=== PATIENT | female | born 1935 | race American Indian/Alaskan Native ===

== ENCOUNTER 2016-12-23 15:55 | Emergency (ER) | payer BC, MEDICARE ==
[2016-12-23 15:56] VITALS: BMI 35.1
[2016-12-23 16:37] VITALS: RESP 18
[2016-12-23] MEDS ORDERED: Apap-Butalbital-Caffeine 325-50-40mg Tab PO STA (18:12)
[2016-12-23] MEDS ORDERED: Apap-Butalbital-Caffeine 325-50-40mg Tab ONE (18:16)
--- NOTE | 2016-12-23 19:47 | CT ---
EXAM: CT Head Without Intravenous Contrast. CLINICAL HISTORY: 81 years old, female; Condition or disease; Headache TECHNIQUE: Axial computed tomography images of the head/brain without intravenous contrast. This CT exam was performed using one or more of the following dose reduction techniques: automated exposure control, adjustment of the mA and/or kV according to patient size, and/or use of iterative reconstruction technique. EXAM DATE/TIME: 12/23/2016 6:11 PM COMPARISON: Prior head CT of 01/29/2016 FINDINGS: BRAIN: Diffuse, age-related cortical atrophy and ventriculomegaly. No significant acute abnormality identified. No acute hemorrhage seen within the brain. No acute extra-axial fluid collections visualized. No evidence of significant mass effect within the brain. VENTRICLES: See above. BONES/JOINTS: No acute fractures or other acute bony abnormality noted. SOFT TISSUES: No acute abnormality of the visualized soft tissues is seen. VASCULATURE: Atherosclerotic calcification. SINUSES: Visualized paranasal sinuses appear clear. MASTOID AIR CELLS: Mastoid air cells appear clear. IMPRESSION: - No acute findings seen within the brain. - See above for remaining findings.
[2016-12-23 20:11] VITALS: BP 152/87; PULSE 77; TEMP 98; O2SAT 95
--- NOTE | 2016-12-23 20:14 | C.PDOC ---
Time Seen by Provider: 12/23/16 18:00 Chief Complaint (Nursing): Headache History Per: Patient Onset/Duration Of Symptoms: Days (3), Waxing/Waning, Gradual Current Symptoms Are (Timing): Still Present Severity: Moderate Quality: Other (Throbbing) Associated Symptoms: denies: Photophobia, Blurred Vision, Extremity Weakness Additional History Per: Prior Records Past Medical History Reviewed: Historical Data, Nursing Documentation, Vital Signs Vital Signs: Last Vital Signs Temp 98.0 F 12/23/16 20:10 Pulse 77 12/23/16 20:10 Resp 18 12/23/16 20:10 BP 152/87 H 12/23/16 20:10 Pulse Ox 95 12/23/16 20:10 - Medical History PMH: Anemia, Arthritis, Asthma, Back Problems, COPD, Diabetes (NIDDM), HTN, Hypercholesterolemia, Osteoporosis, TIA - [facility] Procedures CLOSED ENDOSCOPIC BIOPSY OF LARGE INTESTINE (12/14/13) ESOPHAGOGASTRODUODENOSCOPY [EGD] W/CLOSED BIOPSY (12/14/13) Family History: States: Unknown Family Hx - Social History Hx Tobacco Use: No Hx Alcohol Use: No Hx Substance Use: No - Immunization History Hx Tetanus Toxoid Vaccination: No Hx Influenza Vaccination: Yes Hx Pneumococcal Vaccination: No Review Of Systems Except As Marked, All Systems Reviewed And Found Negative. Constitutional: Negative for: Fever, Weakness Cardiovascular: Negative for: Chest Pain Respiratory: Negative for: Shortness of Breath Gastrointestinal: Negative for: Nausea, Vomiting, Abdominal Pain Skin: Negative for: Rash Neurological: Positive for: Headache. Negative for: Weakness, Numbness, Incoordination, Change in Speech, Confusion, Seizures, Altered Mental Status, Dizziness Physical Exam - Physical Exam Appears: Non-toxic, No Acute Distress Skin: Normal Color, Warm, Dry, No Rash Head: Atraumatic Eye(s): bilateral: EOMI, right: Abnormal Pupil (post surgical), left: PERRL Neck: Normal ROM, Supple Cardiovascular: Rhythm Regular Respiratory: Normal Breath Sounds, No Accessory Muscle Use Gastrointestinal/Abdominal: Soft, No Tenderness Back: No CVA Tenderness Extremity: Normal ROM Neurological/Psych: Oriented x3, Normal Speech, Normal Cognition, No Cerebellar Signs, Normal Motor, Normal Sensation ED Course And Treatment O2 Sat by Pulse Oximetry: 95 Pulse Ox Interpretation: Normal - CT Scan/US CT head Other Rad Studies (CT/US): Read By Radiologist, Radiology Report Reviewed CT/US Interpretation: IMPRESSION: - No acute findings seen within the brain. - See above for remaining findings. Progress Note: Headache resolved after Fioricet. Reassessment Condition: Improved Disposition Counseled Patient/Family Regarding: Studies Performed, Diagnosis, Need For Followup, Rx Given - Disposition Referrals: Diomedes Diaz MD [Staff Provider] - Disposition: HOME/ ROUTINE Disposition Time: 20:16 Condition: IMPROVED Additional Instructions: Follow up with your doctor for further evaluation and treatment. Return to the ER if you develop fever, vomiting, weakness, numbness, severe headache, confusion, worsening of symptoms or if you have any other concerns. Prescriptions: Acetaminophen/Butalbital/Caf [Fioricet] 1 tab PO TID PRN #20 tab PRN Reason: Headache Instructions: General Headache (ED) Print Language: ISRAELI - Clinical Impression Clinical Impression: Headache
== END 2016-12-23 20:23 | disposition home or self-care (01) ==
LOC: C.ER 15:55
DX: R51 Headache (principal)

== ENCOUNTER 2017-02-20 12:35 | Emergency (ER) | payer MEDICARE, OTHER ==
[2017-02-20 12:36] VITALS: BMI 35.1
[2017-02-20 14:24] VITALS: BP 124/75; PULSE 82; RESP 18; TEMP 98.5; O2SAT 99
--- NOTE | 2017-02-20 15:53 | C.PDOC ---
History Of Present Illness entire chart and discharge done on paper during [facility] downtime. Past Medical History Vital Signs: Last Vital Signs Temp 98.5 F 02/20/17 14:23 Pulse 82 02/20/17 14:23 Resp 18 02/20/17 14:23 BP 124/75 02/20/17 14:23 Pulse Ox 99 02/20/17 15:53 - Medical History PMH: Anemia, Arthritis, Asthma, Back Problems, COPD, Diabetes (NIDDM), HTN, Hypercholesterolemia, Osteoporosis, TIA Denies: Chronic Kidney Disease - [facility] Procedures CLOSED ENDOSCOPIC BIOPSY OF LARGE INTESTINE (12/14/13) ESOPHAGOGASTRODUODENOSCOPY [EGD] W/CLOSED BIOPSY (12/14/13) Family History: States: Unknown Family Hx - Social History Hx Tobacco Use: No Hx Alcohol Use: No Hx Substance Use: No - Immunization History Hx Tetanus Toxoid Vaccination: No Hx Influenza Vaccination: Yes Hx Pneumococcal Vaccination: No ED Course And Treatment O2 Sat by Pulse Oximetry: 99 Disposition - Disposition Disposition: HOME/ ROUTINE Disposition Time: 13:30 Condition: GOOD - Clinical Impression Clinical Impression: Upper respiratory infection
== END 2017-02-20 14:24 | disposition home or self-care (01) ==
LOC: C.ER 12:35
DX: J06.9 Acute upper respiratory infection, unspecified (principal); R22.0 Localized swelling, mass and lump, head; L29.9 Pruritus, unspecified

== ENCOUNTER 2017-04-29 20:41 | Emergency (ER) | payer MEDICARE, BC, OTHER ==
[2017-04-29 20:41] VITALS: BMI 35.1
[2017-04-29 20:58] VITALS: O2SAT 100
[2017-04-29] MEDS ORDERED: Sodium Chloride 0.9% 1,000 ML IV ONE (21:54)
[2017-04-29] MEDS ORDERED: Sodium Chloride 0.9% 1,000 ML ONE (22:04)
[2017-04-29 22:26] LABS: BASO % 0.6 % (0.0-2.0); EOS # 0.1 K/uL (0.0-0.7); EOS % 1.5 % (0.0-4.0); HEMATOCRIT 33.7 % (34.0-47.0); LYMPH % 14.1 % (20.0-40.0); MEAN CELL VOLUME 76.7 fL (81.0-99.0); MEAN CORPUSCULAR HEMOGLOBIN 24.2 pg (27.0-31.0); MEAN CORPUSCULAR HGB CONC 31.6 g/dL (33.0-37.0); MEAN PLATELET VOLUME 8.4 fL (7.2-11.7); MONO # 0.6 K/uL (0.0-0.8); MONO % 8.1 % (0.0-10.0); RED CELL DISTRIBUTION WIDTH 14.6 % (11.5-14.5)
--- NOTE | 2017-04-29 22:32 | C.PDOC ---
History Of Present Illness 82 year old female who presents to the ER with a complaint of dizziness for the past 4-5 days, associated with nausea and vomiting. Patient reports it feels like the room is spinning, denies headache, fever, or chills. Chief Complaint (Nursing): Dizziness/Lightheaded History Per: Patient History/Exam Limitations: no limitations Onset/Duration Of Symptoms: Days Current Symptoms Are (Timing): Still Present Activity At Onset Of Symptoms: Other (Not known) Seizure Or Post-ictal Symptoms: None Possible Causative Factor(s): Other (Not known) Fall Associated With With Symptoms: No Recent travel outside of the [place]: No - Symptoms Of CVA Associated Symptoms: denies: Impaired Speech, Seizure Activity, New Vision Deficit(Left), New Vision Deficit(Right), Decreased Ability To Walk, New Confusion, Other Past Medical History Reviewed: Historical Data, Nursing Documentation, Vital Signs Vital Signs: Last Vital Signs Temp 98.8 F 04/29/17 20:56 Pulse 74 04/29/17 23:24 Resp 12 04/29/17 23:24 BP 125/58 L 04/29/17 23:24 Pulse Ox 100 04/30/17 00:29 - Medical History PMH: Anemia, Arthritis, Asthma, Back Problems, COPD, Diabetes (NIDDM), HTN, Hypercholesterolemia, Osteoporosis, TIA - [facility] Procedures CLOSED ENDOSCOPIC BIOPSY OF LARGE INTESTINE (12/14/13) ESOPHAGOGASTRODUODENOSCOPY [EGD] W/CLOSED BIOPSY (12/14/13) Family History: States: Unknown Family Hx - Social History Hx Tobacco Use: No Hx Alcohol Use: No Hx Substance Use: No - Immunization History Hx Tetanus Toxoid Vaccination: No Hx Influenza Vaccination: Yes Hx Pneumococcal Vaccination: No Review Of Systems Gastrointestinal: Positive for: Nausea, Vomiting Neurological: Positive for: Dizziness. Negative for: Weakness, Numbness, Headache Physical Exam - Physical Exam Appears: Non-toxic, No Acute Distress Skin: Normal Color, Warm, Dry Head: Atraumatic, Normacephalic Eye(s): bilateral: Other (Nystagmus laterally) Oral Mucosa: Moist Neck: Normal, Supple Chest: Symmetrical, No Tenderness Cardiovascular: Rhythm Regular, No Murmur Respiratory: Normal Breath Sounds, No Rales, No Rhonchi, No Wheezing Gastrointestinal/Abdominal: Soft, No Tenderness Neurological/Psych: Oriented x3, Normal Speech, Normal Cognition ED Course And Treatment - Laboratory Results Result Diagrams: 04/29/17 22:22 04/29/17 22:22 ECG: Interpreted By Me, Viewed By Me ECG Rhythm: Sinus Rhythm ECG Interpretation: No Acute Changes, Abnormal Interpretation Of ECG: NSR, QS pattern inferior leads, abnormal tracings. Rate From EC O2 Sat by Pulse Oximetry: 100 (Room air) Pulse Ox Interpretation: Normal - CT Scan/US CT Head Other Rad Studies (CT/US): Read By Radiologist, Radiology Report Reviewed CT/US Interpretation: EXAM: CT Head Without Intravenous Contrast. CLINICAL HISTORY: 82 years old, female; Pain and signs and symptoms; Dizziness; Headache ; Headache not specified. TECHNIQUE: Axial computed tomography images of the head/brain without intravenous contrast. This CT exam. was performed using one or more of the following dose reduction techniques: automated exposure. control , adjustment of the mA and/or kV according to patient size, and/or use of iterative. reconstruction technique. COMPARISON: CT - HEAD W/O CONTRAST 2015 11:58:44 AM. FINDINGS: Brain: Mild atrophy. No intracranial hemorrhage. No mass. No definite edema. Ventricles: No hydrocephalus. Bones/joints: No acute fracture. Soft tissues: Unremarkable. Vasculature: Mild atherosclerotic disease of intracranial arteries. Sinuses: Tiny RIGHT maxillary retention cyst. Mastoid air cells: No mastoid effusion. Orbits: Unremarkable as visualized. IMPRESSION: 1. No definite acute intracranial abnormality. 2. Incidental/non-acute findings are described above. Progress Note: CT head and EKG ordered. Antivert, zofran, and IV fluids administered. Disposition Counseled Patient/Family Regarding: Diagnosis - Disposition Referrals: [facility] [Outside] Disposition: HOME/ ROUTINE Disposition Time: 00:28 Condition: STABLE Prescriptions: Meclizine [Meclizine*] 25 mg PO Q6 #30 tab Instructions: Vertigo (ED) Forms: [facility] (Korean) - POA Present On Arrival: None - Clinical Impression Clinical Impression: Vertigo - Scribe Statement The provider has reviewed the documentation as recorded by the Scribe Kenneth Stovall All medical record entries made by the Scribe were at my direction and personally dictated by me. I have reviewed the chart and agree that the record accurately reflects my personal performance of the history, physical exam, medical decision making, and the department course for this patient. I have also personally directed, reviewed, and agree with the discharge instructions and disposition.
[2017-04-29 22:34] LABS: CHLORIDE 94 mmol/L (98-107); POTASSIUM 5.2 mmol/L (3.6-5.2); SODIUM 136 mmol/L (132-148)
[2017-04-29 22:36] LABS: GFR AFRICAN-AMERICAN > 60
[2017-04-29 22:37] LABS: ALB/GLOB RATIO 1.3 (1.0-2.1); ALKALINE PHOSPHATASE 36 U/L (38-126); ALT/SGPT 26 U/L (9-52); AST/SGOT 48 U/L (14-36); BILIRUBIN,TOTAL 0.9 mg/dL (0.2-1.3); BLOOD UREA NITROGEN 16 mg/dL (7-17); CARBON DIOXIDE 27 mmol/L (22-30); GLUCOSE,RANDOM 108 mg/dL (65-105); TOTAL PROTEIN 7.7 g/dL (6.3-8.3)
[2017-04-29 22:38] LABS: CALCIUM 9.5 mg/dl (8.6-10.4)
--- NOTE | 2017-04-29 23:01 | CT ---
EXAM: CT Head Without Intravenous Contrast CLINICAL HISTORY: 82 years old, female; Pain and signs and symptoms; Dizziness; Headache; Headache not specified TECHNIQUE: Axial computed tomography images of the head/brain without intravenous contrast. This CT exam was performed using one or more of the following dose reduction techniques: automated exposure control, adjustment of the mA and/or kV according to patient size, and/or use of iterative reconstruction technique. COMPARISON: CT - HEAD W/O CONTRAST 01/29/2016 11:58:44 AM FINDINGS: Brain: Mild atrophy. No intracranial hemorrhage. No mass. No definite edema. Ventricles: No hydrocephalus. Bones/joints: No acute fracture. Soft tissues: Unremarkable. Vasculature: Mild atherosclerotic disease of intracranial arteries. Sinuses: Tiny RIGHT maxillary retention cyst. Mastoid air cells: No mastoid effusion. Orbits: Unremarkable as visualized. IMPRESSION: 1. No definite acute intracranial abnormality. 2. Incidental/non-acute findings are described above.
[2017-04-29 23:26] VITALS: PULSE 74; RESP 12
[2017-04-30 00:40] VITALS: BP 129/58; TEMP 97.9
--- NOTE | 2017-04-30 12:23 | CARD ---
APPROVED REPORT EKG Measurement Heart [id number] <Conclusion> Normal sinus rhythm with sinus arrhythmia Moderate voltage criteria for LVH, may be normal variant Inferior infarct, age undetermined Abnormal ECG
== END 2017-04-30 00:43 | disposition home or self-care (01) ==
LOC: C.ER 20:41
DX: R42 Dizziness and giddiness (principal); I10 Essential (primary) hypertension; E78.00 Pure hypercholesterolemia, unspecified; Z86.73 Personal history of transient ischemic attack (TIA), and cerebral infarction without residual deficits
CPT/HCPCS: 70450; 80053; 85025; 93005; 96374; 99285; J2405; J7040

== ENCOUNTER 2017-07-25 08:50 | Emergency (ER) | payer MEDICARE, BC, OTHER ==
[2017-07-25 08:50] VITALS: BMI 35.1
[2017-07-25 09:02] VITALS: RESP 18; TEMP 98
[2017-07-25] MEDS ORDERED: Albuterol-Ipratrop 3 mg / 0.5 (3 ml) UD INH STA (09:10)
[2017-07-25] MEDS ORDERED: Albuterol-Ipratrop 3 mg / 0.5 (3 ml) UD ONE (09:11)
--- NOTE | 2017-07-25 09:36 | C.PDOC ---
History Of Present Illness 82 y/o female presents to ED with c/o nasal congestion and cough for 3 days. Patient reports cough productive of white sputum. Denies fever, chills, chest pain, SOB, nausea, vomiting, diarrhea, or other associated symptoms. Time Seen by Provider: 07/25/17 09:09 Chief Complaint (Nursing): Cough, Cold, Congestion History Per: Patient History/Exam Limitations: no limitations Onset/Duration Of Symptoms: Days Current Symptoms Are (Timing): Still Present Sick Contacts (Context): None Associated Symptoms: Cough, Sputum, Nasal Congestion. denies: Fever, Neck Pain , Vomiting, Diarrhea Ear Symptoms: Bilateral: None Recent travel outside of the [place]: No Past Medical History Reviewed: Historical Data, Nursing Documentation, Vital Signs Vital Signs: Last Vital Signs Temp 98.0 F 07/25/17 09:01 Pulse 73 07/25/17 09:48 Resp 18 07/25/17 09:48 BP 115/66 07/25/17 09:48 Pulse Ox 100 07/25/17 09:48 - Medical History PMH: Anemia, Arthritis, Asthma, Back Problems, COPD, Diabetes (NIDDM), HTN, Hypercholesterolemia, Osteoporosis, TIA - [facility] Procedures CLOSED ENDOSCOPIC BIOPSY OF LARGE INTESTINE (12/14/13) ESOPHAGOGASTRODUODENOSCOPY [EGD] W/CLOSED BIOPSY (12/14/13) Family History: States: Unknown Family Hx - Social History Hx Tobacco Use: No Hx Alcohol Use: No Hx Substance Use: No - Immunization History Hx Tetanus Toxoid Vaccination: No Hx Influenza Vaccination: Yes Hx Pneumococcal Vaccination: No Review Of Systems Except As Marked, All Systems Reviewed And Found Negative. Constitutional: Negative for: Fever, Chills Cardiovascular: Negative for: Chest Pain, Palpitations Respiratory: Positive for: Cough, Sputum. Negative for: Shortness of Breath Gastrointestinal: Negative for: Nausea, Vomiting, Abdominal Pain Skin: Negative for: Rash Neurological: Negative for: Headache, Dizziness Physical Exam - Physical Exam Appears: Non-toxic, No Acute Distress Skin: Normal Color, Warm, Dry Head: Atraumatic, Normacephalic Eye(s): bilateral: Normal Inspection, PERRL, EOMI Ear(s): Bilateral: Normal Nose: Normal Oral Mucosa: Moist Throat: Normal, No Erythema, No Exudate Neck: Normal ROM, Supple Chest: Symmetrical Cardiovascular: Rhythm Regular Respiratory: Normal Breath Sounds, No Rales, No Rhonchi, No Wheezing Gastrointestinal/Abdominal: Normal Exam, Soft, No Tenderness Back: Normal Inspection Extremity: Normal ROM, Capillary Refill (< 2 sec.) Neurological/Psych: Oriented x3, Normal Speech, Normal Cognition ED Course And Treatment O2 Sat by Pulse Oximetry: 96 (RA) Pulse Ox Interpretation: Normal - Radiology CXR: Viewed By Me, Read By Radiologist CXR Interpretation: Yes: Other (Suspect mild bibasilar atelectasis.) Medical Decision Making Medical Decision Making: Plan: CxR ordered. Nebulizer treatment given. Progress: On re-eval, lungs remain CTA, pt in no acute distress. Advised follow up with PMD and to take prescribed medications as directed. Disposition Counseled Patient/Family Regarding: Diagnosis, Need For Followup, Rx Given - Disposition Referrals: Oscar Sarmiento MD [Medical Doctor] - Disposition: HOME/ ROUTINE Disposition Time: 09:30 Condition: STABLE Additional Instructions: Your prescriptions were sent to [facility] Take couch medicine as needed Take Zithromax as prescribed Please follow up with your primary doctor for further evaluation Prescriptions: Azithromycin [Z-Nate] 250 mg PO DAILY #6 tab guaiFENesin/Dextromethorphan [Robitussin DM] 10 ml PO Q8 PRN #300 ml PRN Reason: Cough Instructions: Upper Respiratory Infection (ED) Forms: [facility] (Divehi) - POA Present On Arrival: None - Clinical Impression Clinical Impression: Upper respiratory infection - PA / GALLEY COOK / Resident Statement MD/DO has reviewed & agrees with the documentation as recorded. - Scribe Statement The provider has reviewed the documentation as recorded by the Scribe SM All medical record entries made by the Scribe were at my direction and personally dictated by me. I have reviewed the chart and agree that the record accurately reflects my personal performance of the history, physical exam, medical decision making, and the department course for this patient. I have also personally directed, reviewed, and agree with the discharge instructions and disposition.
--- NOTE | 2017-07-25 09:42 | RAD ---
HISTORY: cough COMPARISON: Comparison made with prior chest radiograph 11/08/2016 TECHNIQUE: Chest PA and lateral FINDINGS: LUNGS: Suspect mild bibasilar atelectasis PLEURA: No significant pleural effusion identified. No pneumothorax apparent. CARDIOVASCULAR: . Heart size is borderline/ mildly enlarged. OSSEOUS STRUCTURES: Mild multilevel degenerative spondylosis of the thoracic spine. Degenerative changes both shoulder girdles. VISUALIZED UPPER ABDOMEN: Normal. OTHER FINDINGS: None. IMPRESSION: Suspect mild bibasilar atelectasis.
[2017-07-25 09:49] VITALS: BP 115/66; PULSE 73
[2017-07-25 10:05] VITALS: O2SAT 96
== END 2017-07-25 09:49 | disposition home or self-care (01) ==
LOC: C.ER 08:50
DX: J06.9 Acute upper respiratory infection, unspecified (principal)

== ENCOUNTER 2017-08-19 12:26 | Emergency (ER) | payer MEDICARE, BC, OTHER ==
[2017-08-19 12:30] VITALS: BMI 35.1
[2017-08-19 12:38] VITALS: BP 130/79; PULSE 86; RESP 18; TEMP 97.5; O2SAT 99
--- NOTE | 2017-08-19 12:56 | C.PDOC ---
History Of Present Illness 82 yr old female presents to the ER for evaluation of white patches in her mouth for the past 1 month. Patient states she was seen by her doctor 1 month ago and was given prescription for a dissolving tablet but has had no relief with them. Patient reports she also has a appointment with her dentist in September. Patient denies any pain but states it feels like her mouth is dry. Patient denies fever, chills, sore throat, difficulty swallowing or neck pain. Time Seen by Provider: 08/19/17 12:46 Chief Complaint (Nursing): Medical Clearance History Per: Patient History/Exam Limitations: no limitations Onset/Duration Of Symptoms: Days (1 month) Current Symptoms Are (Timing): Still Present Past Medical History Reviewed: Historical Data, Nursing Documentation, Vital Signs Vital Signs: Last Vital Signs Temp 97.5 F L 08/19/17 12:36 Pulse 86 08/19/17 12:36 Resp 18 08/19/17 12:36 BP 130/79 08/19/17 12:36 Pulse Ox 99 08/19/17 13:01 - Medical History PMH: Anemia, Arthritis, Asthma, Back Problems, COPD, Diabetes (NIDDM), HTN, Hypercholesterolemia, Osteoporosis, TIA - [facility] Procedures CLOSED ENDOSCOPIC BIOPSY OF LARGE INTESTINE (12/14/13) ESOPHAGOGASTRODUODENOSCOPY [EGD] W/CLOSED BIOPSY (12/14/13) Family History: States: No Known Family Hx - Social History Hx Tobacco Use: No Hx Alcohol Use: No Hx Substance Use: No - Immunization History Hx Tetanus Toxoid Vaccination: No Hx Influenza Vaccination: Yes Hx Pneumococcal Vaccination: No Review Of Systems Except As Marked, All Systems Reviewed And Found Negative. Constitutional: Negative for: Fever, Chills ENT: Negative for: Throat Pain Musculoskeletal: Negative for: Neck Pain Physical Exam - Physical Exam Appears: Non-toxic, No Acute Distress Skin: Warm, Dry, No Rash Head: Atraumatic, Normacephalic Oral Mucosa: Moist Throat: Normal, No Erythema, No Exudate, No Drooling Neck: Normal, Normal ROM, Supple Cardiovascular: Rhythm Regular, No Murmur Respiratory: Normal Breath Sounds, No Rales, No Rhonchi, No Stridor, No Wheezing Extremity: Normal ROM, No Swelling Neurological/Psych: Oriented x3, Normal Speech, Normal Motor ED Course And Treatment O2 Sat by Pulse Oximetry: 99 (RA) Pulse Ox Interpretation: Normal Progress Note: Patient advised to follow up with her PMD in 2-3 days and dentist. Disposition Counseled Patient/Family Regarding: Diagnosis, Need For Followup, Rx Given - Disposition Disposition Time: 12:56 Condition: STABLE Additional Instructions: Follow up with your pmd in 2 days without fail. Take medication as prescribed. Return to the ER at any time for any new or worsening symptoms. Prescriptions: Nystatin [Nystatin Oral Susp] 100,000 unit PO QID #150 ml Instructions: Oral Candidiasis (ED) Forms: [employer] (Niuean) Print Language: TELUGU - Clinical Impression Clinical Impression: Thrush, oral - PA / RING P[employer]ER / Resident Statement MD/DO has reviewed & agrees with the documentation as recorded. - Scribe Statement The provider has reviewed the documentation as recorded by the Scribe Renetta Colon All medical record entries made by the Scribe were at my direction and personally dictated by me. I have reviewed the chart and agree that the record accurately reflects my personal performance of the history, physical exam, medical decision making, and the department course for this patient. I have also personally directed, reviewed, and agree with the discharge instructions and disposition.
== END 2017-08-19 13:20 | disposition home or self-care (01) ==
LOC: C.ER 12:26
DX: B37.0 Candidal stomatitis (principal)

== ENCOUNTER 2017-09-10 12:42 | Emergency (ER) | payer MEDICARE, BC, OTHER ==
[2017-09-10 12:43] VITALS: BMI 35.1
--- NOTE | 2017-09-10 13:56 | RAD ---
PROCEDURE: Right Hip Radiographs. HISTORY: Pain COMPARISON: None. FINDINGS: BONES: The pelvic ring is intact. There is no acute displaced fracture or bone destruction. JOINTS: The joint spaces are preserved. SOFT TISSUES: Normal. OTHER FINDINGS: There are multiple soft tissue calcifications in the right periarticular region. Atherosclerotic vascular calcifications are present. IMPRESSION: No acute displaced fracture or dislocation.
[2017-09-10 14:40] VITALS: RESP 18
--- NOTE | 2017-09-10 14:53 | RAD ---
PROCEDURE: Lumbar spine 09/10/2017. Three views of the lumbar spine performed and compared with prior study dated 08/17/2013. HISTORY: Pain FINDINGS: BONES: No acute compression fractures nor retropulsed fragments. Vertebral bodies exhibit normal stature. There is a mild levo rotoscoliosis. Slight anterior subluxation L5 over S1. Questionable spina bifida occulta involving the L4 segment DISC SPACES: Multilevel degenerative spondylosis. . Changes include varying degrees of mild posterior disc space narrowing with endplate eburnation and small anterolateral osteophyte formation. The facet joints are hypertrophic L5-S1 through the L2-L3 levels in decreasing order of severity. OTHER FINDINGS: Spondylosis. Sclerotic changes both SI joints. IMPRESSION: No acute fractures. Mild levorotoscoliosis. . Multilevel degenerative spondylosis as described.
--- NOTE | 2017-09-10 15:07 | C.PDOC ---
History Of Present Illness 82 y/o female presents to the ED complaining of right hip pain for 2 weeks. Pain worsens with movement and radiated down the right leg. Denies any trauma or fall. Patient has a history of arthritis. Has been taking Tylenol for the pain. No abdominal pain, dysuria, urinary frequency, urinary/bowel incontinence , fever or chest pain. Pt walks with a cane, notes she has been for a while now , not since the hip pain. Time Seen by Provider: 09/10/17 13:08 Chief Complaint (Nursing): Hip Pain History Per: Patient History/Exam Limitations: no limitations Onset/Duration Of Symptoms: Days (x 2 weeks) Current Symptoms Are (Timing): Still Present Past Medical History Reviewed: Historical Data, Nursing Documentation, Vital Signs Vital Signs: Last Vital Signs Temp 97.3 F L 09/10/17 15:49 Pulse 67 09/10/17 15:49 Resp 18 09/10/17 15:49 BP 125/73 09/10/17 15:49 Pulse Ox 100 09/10/17 15:49 - Medical History PMH: Anemia, Arthritis, Asthma, Back Problems, COPD, Diabetes (NIDDM), HTN, Hypercholesterolemia, Osteoporosis, TIA Denies: Chronic Kidney Disease - [facility] Procedures CLOSED ENDOSCOPIC BIOPSY OF LARGE INTESTINE (12/14/13) ESOPHAGOGASTRODUODENOSCOPY [EGD] W/CLOSED BIOPSY (12/14/13) Family History: States: Unknown Family Hx - Social History Hx Tobacco Use: No Hx Alcohol Use: No Hx Substance Use: No - Immunization History Hx Tetanus Toxoid Vaccination: No Hx Influenza Vaccination: Yes Hx Pneumococcal Vaccination: No Review Of Systems Gastrointestinal: Negative for: Abdominal Pain Genitourinary: Negative for: Dysuria, Frequency, Incontinence Musculoskeletal: Positive for: Other (Right hip pain) Physical Exam - Physical Exam Appears: Non-toxic, No Acute Distress Skin: Normal Color, Warm, Dry Head: Atraumatic, Normacephalic Eye(s): bilateral: Normal Inspection, EOMI Nose: Normal Oral Mucosa: Moist Neck: Normal ROM, Supple Chest: Symmetrical Respiratory: No Accessory Muscle Use Back: No CVA Tenderness, No Vertebral Tenderness, Paraspinal Tenderness ((+) TTP the right buttock/lateral hip) Extremity: Normal ROM, Tenderness (diffusely, no swelling noted), No Calf Tenderness, No Deformity, No Swelling Pulses: Left Dorsalis Pedis: Normal, Right Dorsalis Pedis: Normal Neurological/Psych: Oriented x3, Normal Speech Gait: With Assistance (ambulates with a cane, at baseline) ED Course And Treatment O2 Sat by Pulse Oximetry: 99 (RA) Pulse Ox Interpretation: Normal - Other Rad X-Ray Lumbar Spine X-Ray: Read By Radiologist Interpretation: FINDINGS: BONES: No acute compression fractures nor retropulsed fragments. Vertebral bodies exhibit normal stature. There is a mild levo rotoscoliosis. Slight anterior subluxation L5 over S1. Questionable spina bifida occulta involving the L4 segment. DISC SPACES: Multilevel degenerative spondylosis. . Changes include varying degrees of mild posterior disc space narrowing with endplate eburnation and small anterolateral osteophyte formation. The facet joints are hypertrophic L5-S1 through the L2-L3 levels in decreasing order of severity. OTHER FINDINGS: Spondylosis. Sclerotic changes both SI joints. IMPRESSION: No acute fractures. Mild levorotoscoliosis. . Multilevel degenerative spondylosis as described. X-Ray Pelvis w/ Right Hip X-Ray: Read By Radiologist Interpretation: FINDINGS: BONES: The pelvic ring is intact. There is no acute displaced fracture or bone destruction. JOINTS: The joint spaces are preserved. SOFT TISSUES: Normal. OTHER FINDINGS: There are multiple soft tissue calcifications in the right periarticular region. Atherosclerotic vascular calcifications are present. IMPRESSION: No acute displaced fracture or dislocation. - CT Scan/US Vascular study Other Rad Studies (CT/US): Interpreted By Me CT/US Interpretation: Negative for DVT Progress Note: Pt was given results of XRs and instructed follo wup with PMD in 1-2 days or return to ER if symtpoms persist or worsen. Disposition - Disposition Referrals: Trever Davidson MD [Staff Provider] - Disposition: HOME/ ROUTINE Disposition Time: 15:43 Condition: STABLE Additional Instructions: Follow up with your primary medical doctor or clinic in 2-5 days for further evaluation. Take medications as prescribed. Return to the emergency department at any time if symptoms persist or worsen. Instructions: Osteoarthritis (ED) Forms: [employer] (Cambodian) - Clinical Impression Clinical Impression: Hip pain - PA / FIELD AUDITOR / Resident Statement MD/DO has reviewed & agrees with the documentation as recorded. - Scribe Statement The provider has reviewed the documentation as recorded by the Scribe (Thea Catherine) All medical record entries made by the Scribe were at my direction and personally dictated by me. I have reviewed the chart and agree that the record accurately reflects my personal performance of the history, physical exam, medical decision making, and the department course for this patient. I have also personally directed, reviewed, and agree with the discharge instructions and disposition.
[2017-09-10 15:36] LABS: RBC URINE < 1 /hpf (0-3); URINE BILIRUBIN NEGATIVE (NEGATIVE); URINE BLOOD NEGATIVE (NEGATIVE); URINE COLOR Yellow (YELLOW); URINE GLUCOSE (UA) NORMAL (Normal); URINE KETONE NEGATIVE (NEGATIVE); URINE LEUKOCYTE ESTERASE NEG Leu/uL (Negative); URINE PROTEIN NEGATIVE (NEGATIVE); URINE UROBILINOGEN NORMAL mg/dL (0.2-1.0); WBC URINE 1 /hpf (0-5)
[2017-09-10 15:50] VITALS: BP 125/73; PULSE 67; TEMP 97.3
[2017-09-10 18:34] VITALS: O2SAT 99
--- NOTE | 2017-09-11 11:20 | VASCLAB ---
PROCEDURE: Right Lower Extremity Venous Duplex Exam. HISTORY: pain PRIORS: None. TECHNIQUE: Right common femoral, femoral, popliteal and posterior tibial, peroneal and great saphenous veins were evaluated. Flow was assessed with color Doppler, compressibility, assessment of phasic flow and augmentation response. Report prepared by HAN Sanchez, RVT FINDINGS: RIGHT: 1. Common Femoral Vein: 1.1. Compressibility - Fully compressible: Thrombus - None: Flow - Phasic: Augmentation -Normal: Reflux - None. 2. Femoral Vein: 2.1. Compressibility - Fully compressible: Thrombus - None: Flow - Phasic: Augmentation -Normal: Reflux - None. 3. Popliteal Vein: 3.1. Compressibility - Fully compressible: Thrombus - None: Flow - Phasic: Augmentation -Normal: Reflux - None. 4. Posterior Tibial Vein: 4.1. Compressibility - Fully compressible: Thrombus - None: Flow - Phasic: Augmentation -Normal: Reflux - None. 5. Peroneal Vein: 5.1. Compressibility - Fully compressible: Thrombus - None: Flow - Phasic: Augmentation -Normal: Reflux - None. 6. Great Saphenous Vein: 6.1. Compressibility - Fully compressible: Thrombus -None: Flow - Phasic: Augmentation - Normal: Reflux - None. OTHER FINDINGS: IMPRESSION: No evidence of deep or superficial vein thrombosis of the right lower extremity with excellent venous flow. Normal valve function noted of the right side. Normal venous flow noted in the left common femoral vein.
== END 2017-09-10 15:54 | disposition home or self-care (01) ==
LOC: C.ER 12:42
DX: M25.551 Pain in right hip (principal); I10 Essential (primary) hypertension; E11.9 Type 2 diabetes mellitus without complications; Z86.73 Personal history of transient ischemic attack (TIA), and cerebral infarction without residual deficits; Z87.891 Personal history of nicotine dependence

== ENCOUNTER 2017-11-26 12:18 | Emergency (ER) | payer MEDICARE, BC, OTHER ==
[2017-11-26 12:18] VITALS: BMI 35.1
[2017-11-26] MEDS ORDERED: Sodium Chloride 0.9% 500 ML IV ONE (12:51)
[2017-11-26 13:11] VITALS: RESP 16; O2SAT 100
[2017-11-26 13:57] LABS: BASO % 0.6 % (0.0-2.0); EOS # 0.1 K/uL (0.0-0.7); EOS % 1.6 % (0.0-4.0); HEMOGLOBIN 10.2 g/dL (11.0-16.0); LYMPH # 1.1 K/uL (1.0-4.3); LYMPH % 13.1 % (20.0-40.0); MEAN CELL VOLUME 77.2 fL (81.0-99.0); MEAN CORPUSCULAR HGB CONC 32.4 g/dL (33.0-37.0); MEAN PLATELET VOLUME 8.3 fL (7.2-11.7); MONO # 0.5 K/uL (0.0-0.8); MONO % 5.6 % (0.0-10.0); NEUT # 6.9 K/uL (1.8-7.0); NEUT % 79.1 % (50.0-75.0); RBC 4.06 Mil/uL (3.80-5.20); RED CELL DISTRIBUTION WIDTH 14.2 % (11.5-14.5); WHITE BLOOD COUNT 8.7 K/uL (4.8-10.8)
[2017-11-26 14:11] LABS: ALB/GLOB RATIO 1.4 (1.0-2.1); ALBUMIN 4.2 g/dL (3.5-5.0); ALT/SGPT 16 U/L (9-52); AST/SGOT 21 U/L (14-36); BLOOD UREA NITROGEN 18 mg/dL (7-17); GFR AFRICAN-AMERICAN > 60; GFR NON-AFRICAN AMERICAN > 60; LIPASE 86 U/L (23-300)
--- NOTE | 2017-11-26 15:40 | C.PDOC ---
History Of Present Illness 82-year-old female presents to the emergency department with complaints of dizziness described as room spinning around her. Patient states symptoms started after taking PO Tramadol that was recently prescribed by her doctor. She tried PO Meclizine 12.5mg with minimal relief. Patient denies nausea/ vomiting, abdominal pain, visual changes,m facial droop, slurred speech, extremity weakness, sensory changes, chest pain, SOB, palpitations. Time Seen by Provider: 11/26/17 12:21 Chief Complaint (Nursing): GI Problem History Per: Patient History/Exam Limitations: no limitations Onset/Duration Of Symptoms: Hrs Current Symptoms Are (Timing): Still Present Severity: Moderate Past Medical History Reviewed: Historical Data, Nursing Documentation, Vital Signs Vital Signs: Last Vital Signs Temp 97.4 F L 11/26/17 16:55 Pulse 74 11/26/17 16:55 Resp 16 11/26/17 16:55 BP 115/73 11/26/17 16:55 Pulse Ox 100 11/26/17 16:55 - Medical History PMH: Anemia, Arthritis, Asthma, Back Problems, COPD, Diabetes (NIDDM), HTN, Hypercholesterolemia, Osteoporosis, TIA - [facility] Procedures CLOSED ENDOSCOPIC BIOPSY OF LARGE INTESTINE (12/14/13) ESOPHAGOGASTRODUODENOSCOPY [EGD] W/CLOSED BIOPSY (12/14/13) Family History: States: No Known Family Hx - Social History Hx Tobacco Use: No Hx Alcohol Use: No Hx Substance Use: No - Immunization History Hx Tetanus Toxoid Vaccination: No Hx Influenza Vaccination: Yes Hx Pneumococcal Vaccination: No Review Of Systems Except As Marked, All Systems Reviewed And Found Negative. Constitutional: Negative for: Fever Cardiovascular: Negative for: Chest Pain Respiratory: Negative for: Shortness of Breath Gastrointestinal: Negative for: Nausea, Vomiting, Abdominal Pain Neurological: Positive for: Dizziness. Negative for: Weakness, Numbness, Headache Physical Exam - Physical Exam Appears: Non-toxic, No Acute Distress Skin: Normal Color, Warm, Dry, No Rash Head: Normacephalic Eye(s): bilateral: Normal Inspection, PERRL (No nystagmus), EOMI Nose: Normal Oral Mucosa: Moist Neck: Normal, Normal ROM Cardiovascular: Rhythm Regular, Murmur Respiratory: Normal Breath Sounds, No Rales, No Rhonchi, No Wheezing Gastrointestinal/Abdominal: Normal Exam, Bowel Sounds, Soft, No Tenderness Extremity: Normal ROM, No Pedal Edema, No Calf Tenderness, No Deformity, No Swelling Pulses: Left Dorsalis Pedis: Normal, Right Dorsalis Pedis: Normal Neurological/Psych: Oriented x3, Normal Speech, Normal Cognition, Normal Cranial Nerves, No Cerebellar Signs, Normal Motor, Normal Sensation ED Course And Treatment - Laboratory Results Result Diagrams: 11/26/17 13:51 11/26/17 13:51 ECG: Interpreted By Me, Viewed By Me ECG Rhythm: Sinus Rhythm ECG Interpretation: No Acute Changes Interpretation Of ECG: Left axis deviation. T wave inversions: III and AVF no acute ST changes Rate From EC (bpm) O2 Sat by Pulse Oximetry: 100 (RA) Pulse Ox Interpretation: Normal Progress Note: Blood work, EKG, and UA ordered and reviewed. Patient given IV NS bolus, IV zofran, PO Meclizine. Reevaluation Time: 16:25 Reassessment Condition: Improved (Patient reassessed, states she feels much better, dizziness has improved and she would like to go home. Patient able to ambulate normally in ED. Rx for meclizine given, and patient instructed to follow up with PMD in 1-2 days. She understands she should return to ED if symptoms worsen.) Disposition Counseled Patient/Family Regarding: Studies Performed, Diagnosis, Need For Followup, Rx Given - Disposition Referrals: Diomedes Diaz MD [Staff Provider] - Disposition: HOME/ ROUTINE Disposition Time: 16:25 Condition: STABLE Additional Instructions: FOLLOW UP WITH YOUR DOCTOR IN 1-2 DAYS DRINK PLENTY OF FLUIDS DO NOT TAKE TRAMADOL AGAIN RETURN TO ER IF SYMPTOMS WORSEN Prescriptions: Meclizine [Meclizine*] 25 mg PO Q6 #15 tab Instructions: Vertigo (a Type of Dizziness) Forms: [employer] (Mohawk) Print Language: SLOVAK - Clinical Impression Clinical Impression: Peripheral vertigo - Scribe Statement The provider has reviewed the documentation as recorded by the Scribe (Cruz Andrade) All medical record entries made by the Scribe were at my direction and personally dictated by me. I have reviewed the chart and agree that the record accurately reflects my personal performance of the history, physical exam, medical decision making, and the department course for this patient. I have also personally directed, reviewed, and agree with the discharge instructions and disposition.
[2017-11-26 16:19] LABS: SQUAMOUS EPITHIAL 4 /hpf (0-5); URINE BILIRUBIN NEGATIVE (NEGATIVE); URINE BLOOD NEGATIVE (NEGATIVE); URINE CLARITY Hazy (Clear); URINE COLOR Yellow (YELLOW); URINE GLUCOSE (UA) NORMAL (Normal); URINE LEUKOCYTE ESTERASE TRACE Leu/uL (Negative); URINE NITRATE NEGATIVE (NEGATIVE); URINE PROTEIN NEGATIVE (NEGATIVE); URINE UROBILINOGEN NORMAL mg/dL (0.2-1.0)
[2017-11-26 16:56] VITALS: BP 115/73; PULSE 74; TEMP 97.4
--- NOTE | 2017-11-27 18:58 | CARD ---
APPROVED REPORT EKG Measurement Heart [id number] <Conclusion> Normal sinus rhythm RSR' or QR pattern in V1 Inferior-posterior infarct, age undetermined Lateral ST abnormality, consider ischemia Abnormal ECG
== END 2017-11-26 16:56 | disposition home or self-care (01) ==
LOC: C.ER 12:18
DX: H81.399 Other peripheral vertigo, unspecified ear (principal); E11.9 Type 2 diabetes mellitus without complications; E78.00 Pure hypercholesterolemia, unspecified; I10 Essential (primary) hypertension; J44.9 Chronic obstructive pulmonary disease, unspecified; M81.0 Age-related osteoporosis without current pathological fracture; Z86.73 Personal history of transient ischemic attack (TIA), and cerebral infarction without residual deficits
CPT/HCPCS: 80053; 81001; 83690; 85025; 93005; 96361; 96374; 99285; J2405; J7040

== ENCOUNTER 2017-12-19 08:05 | Day surgery (SDC) | payer MEDICARE, BC, OTHER ==
[2017-12-19 08:40] VITALS: O2SAT 100
--- NOTE | 2017-12-19 09:33 | CP.SDSHP ---
Same Day Surgery H & P - History Proposed Procedure: colonoscopy - Previous Medical/Surgical History Cardiac: Hypertension Endocrine/Metabolic: Diabetes Neuro: Other Previous Surgical History: Tubal ligations - Allergies Allergies: Allergies levofloxacin [From Levaquin] Allergy (Verified 12/17/17 14:10) RASH ITCHING lisinopril Allergy (Verified 12/17/17 14:10) ITCHING RASH Penicillins Allergy (Verified 12/17/17 14:10) RASH ITCHING shellfish derived Allergy (Verified 12/17/17 14:10) RASH ITCHING seafood Allergy (Uncoded 12/17/17 14:10) RASH ITCHING - Physical Exam Vital Signs: Vital Signs 12/19/17 08:34 Temperature 97.3 F L Pulse Rate 83 Respiratory 16 Rate Blood Pressure 136/60 O2 Sat by Pulse 100 Oximetry - Date & Time Date: 12/19/17 Time: 09:33 Short Stay Discharge - Short Stay Discharge Admitting Diagnosis/Reason for Visit: CHANGE IN BOWEL HABITS Disposition: HOME/ ROUTINE
[2017-12-19] MEDS ORDERED: Lidocaine Hydrochloride 5 ML INJ ONE (09:39)
[2017-12-19] MEDS ORDERED: Propofol 10 mg/ml Inj (20 ML) ONE (09:39)
[2017-12-19] MEDS ORDERED: Lactated Ringer's 500 ML IV SCH (10:15)
[2017-12-19 13:45] VITALS: TEMP 97.1
[2017-12-19 13:50] VITALS: BP 127/61; PULSE 72; RESP 18
== END 2017-12-19 11:40 | disposition home or self-care (01) ==
LOC: C.ENDO 08:05
PROVIDERS: ATTEND Colon & Rectal Surgery
DX: K57.90 Diverticulosis of intestine, part unspecified, without perforation or abscess without bleeding (principal); R19.4 Change in bowel habit
CPT/HCPCS: 45378; 82948; J2704; J7120

== ENCOUNTER 2018-03-08 22:56 | Emergency (ER) | payer MEDICARE ==
[2018-03-08 22:56] VITALS: BMI 35.1
[2018-03-08 23:07] VITALS: BP 116/76; PULSE 82; RESP 14; TEMP 97.6; O2SAT 98
--- NOTE | 2018-03-08 23:29 | C.PDOC ---
History Of Present Illness 83 year old female with a Hx of arthritis presents to the ER a complaint of pain to the right hip that radiates down to the right knee for the past 2 days. Patient states the pain worsens with walking and certain movements. Patient notes the pain worsened today, prompting ER visit. Denies weakness or numbness. Time Seen by Provider: 03/08/18 23:10 Chief Complaint (Nursing): Hip Pain History Per: Patient History/Exam Limitations: no limitations Onset/Duration Of Symptoms: Days Current Symptoms Are (Timing): Still Present Recent travel outside of the [place]: No Past Medical History Reviewed: Historical Data, Nursing Documentation, Vital Signs Vital Signs: Last Vital Signs Temp 97.6 F 03/08/18 23:04 Pulse 82 03/08/18 23:04 Resp 14 03/08/18 23:04 BP 116/76 03/08/18 23:04 Pulse Ox 98 03/09/18 06:37 - Medical History PMH: Anemia, Arthritis, Asthma, Back Problems, COPD, Diabetes (NIDDM), HTN, Hypercholesterolemia, Osteoporosis, TIA - [facility] Procedures CLOSED ENDOSCOPIC BIOPSY OF LARGE INTESTINE (12/14/13) ESOPHAGOGASTRODUODENOSCOPY [EGD] W/CLOSED BIOPSY (12/14/13) Family History: States: Unknown Family Hx - Social History Hx Tobacco Use: No Hx Alcohol Use: No Hx Substance Use: No - Immunization History Hx Tetanus Toxoid Vaccination: No Hx Influenza Vaccination: Yes Hx Pneumococcal Vaccination: No Review Of Systems Except As Marked, All Systems Reviewed And Found Negative. Musculoskeletal: Positive for: Leg Pain. Negative for: Back Pain Neurological: Negative for: Weakness, Numbness Physical Exam - Physical Exam Appears: Non-toxic Skin: Normal Color, Warm, Dry Head: Atraumatic, Normacephalic Eye(s): bilateral: Normal Inspection Extremity: Normal ROM (x4), Tenderness (LS spine, anterior right knee, with rotation of the right hip.), No Calf Tenderness, Capillary Refill (<2 seconds), No Deformity, No Swelling Pulses: Left Dorsalis Pedis: Normal, Right Dorsalis Pedis: Normal Neurological/Psych: Oriented x3, Normal Speech, Normal Motor, Normal Sensation Gait: Steady ED Course And Treatment O2 Sat by Pulse Oximetry: 98 - Other Rad Right hip x-ray X-Ray: Interpreted by Me, Viewed By Me Interpretation: No acute fractures or dislocations. Right femur x-ray X-Ray: Interpreted by Me, Viewed By Me Interpretation: No acute fractures or dislocations. Medical Decision Making Medical Decision Making: Right hip x-ray and right femur x-ray ordered, results were negative. Motrin, tylenol, and ultram administered. Lidoderm patch applied. On reevaluation, patient is ambulatory in the ER without any pain or difficulty, will discharge home with Rx and instructions to follow up with PMD. Disposition - Disposition Referrals: Diomedes Diaz MD [Staff Provider] - Disposition: HOME/ ROUTINE Disposition Time: 00:25 Condition: STABLE Additional Instructions: Follow up with the medical doctor within 1-2 days. return if worsened. Prescriptions: Ibuprofen [Motrin] 1 tab PO BID PRN #20 tab PRN Reason: Pain Lidocaine 2% [Xylocaine 2%] 1 applic EXT DAILY PRN #60 gm PRN Reason: Pain, Moderate (4-7) Instructions: Osteoarthritis (DC) Forms: [employer] (Solomon Islander) - Clinical Impression Clinical Impression: Hip pain, Arthritis - PA / SOLE BUFFER / Resident Statement MD/DO has reviewed & agrees with the documentation as recorded. - Scribe Statement The provider has reviewed the documentation as recorded by the Scribe Kenneth Stovall All medical record entries made by the Juan Davidibe were at my direction and personally dictated by me. I have reviewed the chart and agree that the record accurately reflects my personal performance of the history, physical exam, medical decision making, and the department course for this patient. I have also personally directed, reviewed, and agree with the discharge instructions and disposition.
[2018-03-08] MEDS ORDERED: Tramadol 25 mg PO STA (23:32)
[2018-03-09] MEDS ORDERED: Lidocaine 5% Patch TD STA (00:24)
[2018-03-09] MEDS ORDERED: Lidocaine 5% Patch TD ONE (00:31)
--- NOTE | 2018-03-09 08:36 | RAD ---
PROCEDURE: Right Femur Radiographs. HISTORY: pain to the right hip and femur COMPARISON: None. TECHNIQUE: AP and Lateral Radiographs of the right femur. FINDINGS: FEMUR: Bone alignment and mineralization are normal. There is no acute displaced fracture or bone destruction. SOFT TISSUES: Normal. OTHER FINDINGS: None. IMPRESSION: No acute fracture or dislocation.
--- NOTE | 2018-03-09 08:42 | RAD ---
PROCEDURE: Right Hip Radiographs. HISTORY: Pain to the right hip COMPARISON: None. FINDINGS: BONES: Bone alignment and mineralization are normal. There is no acute displaced fracture or bone destruction.There is diffuse bone demineralization. JOINTS: There is mild degenerative osteoarthrosis in the hip joints. The sacroiliac joints are normal. No osteitis pubis. SOFT TISSUES: The multiple soft tissue calcifications lateral to the right iliac wing. OTHER FINDINGS: None. IMPRESSION: No acute fracture or dislocation.Please note occult fractures cannot be excluded on plain radiographs. If there is a persistent clinical concern, an MRI of the hip may be performed for further evaluation.
== END 2018-03-09 00:43 | disposition home or self-care (01) ==
LOC: C.ER 22:56
DX: M13.851 Other specified arthritis, right hip (principal); M25.551 Pain in right hip

== ENCOUNTER 2018-12-07 10:19 | Outpatient (CLI) | payer MEDICARE | END 2018-12-07 10:20 | disposition home or self-care (01) | LOC: C.LAB 10:19 | DX: K59.1 Functional diarrhea (principal) ==

== ENCOUNTER 2018-12-07 11:10 | Emergency (ER) | payer MEDICARE ==
[2018-12-07 11:23] VITALS: BMI 32.9
[2018-12-07 11:27] VITALS: TEMP 98.3
--- NOTE | 2018-12-07 11:49 | C.PDOC ---
History Of Present Illness 83 y/o female with a PMHx of HTN, COPD, TIA, and DM presents to the ED complaining of congestion, runny nose, and sinus pressure for the past few weeks. States she tried OTC medications without relief. She denies any nausea, vomiting, fever, chills, dizziness, weakness, visual changes, or rashes. Patient has not yet seen her doctor for this complaint. Time Seen by Provider: 12/07/18 11:35 Chief Complaint (Nursing): Cough, Cold, Congestion History Per: Patient History/Exam Limitations: no limitations Onset/Duration Of Symptoms: Days Current Symptoms Are (Timing): Still Present Location Of Pain: Sinus/es Associated Symptoms: Sinus Drainage, Nasal Congestion Past Medical History Reviewed: Historical Data, Nursing Documentation, Vital Signs Vital Signs: Last Vital Signs Temp 98.3 F 12/07/18 11:24 Pulse 76 12/07/18 11:24 Resp 20 12/07/18 11:24 BP 128/64 12/07/18 11:24 Pulse Ox 99 12/07/18 11:24 - Medical History PMH: Anemia, Arthritis, Asthma, Back Problems, COPD, Diabetes (NIDDM), HTN, Hypercholesterolemia, Osteoporosis, TIA Denies: Colonic Polyps, Fractures, Chronic Kidney Disease, Seizures, Sleep Apnea Surgical History: Denies: Endoscopy Other Surgeries: Tubal ligation - [facility] Procedures CLOSED ENDOSCOPIC BIOPSY OF LARGE INTESTINE (12/14/13) ESOPHAGOGASTRODUODENOSCOPY [EGD] W/CLOSED BIOPSY (12/14/13) Family History: States: Unknown Family Hx - Social History Hx Tobacco Use: No Hx Alcohol Use: No Hx Substance Use: No - Immunization History Hx Tetanus Toxoid Vaccination: No Hx Influenza Vaccination: Yes Hx Pneumococcal Vaccination: No Review Of Systems Except As Marked, All Systems Reviewed And Found Negative. Constitutional: Negative for: Fever, Chills ENT: Positive for: Nose Discharge, Nose Congestion Cardiovascular: Negative for: Chest Pain, Palpitations Respiratory: Negative for: Shortness of Breath Gastrointestinal: Negative for: Nausea, Vomiting Neurological: Positive for: Headache (Sinus pressure). Negative for: Weakness, Dizziness Physical Exam - Physical Exam Appears: Well, Non-toxic, No Acute Distress Skin: Warm, Dry, No Rash Head: Atraumatic, Normacephalic, Tenderness (frontal sinus tenderness) Eye(s): bilateral: Normal Inspection, PERRL, EOMI Ear(s): Bilateral: Normal (TMs clear) Oral Mucosa: Moist Throat: Normal (oropharynx is clear), No Erythema, No Exudate Neck: Normal ROM, Supple Chest: Symmetrical, No Tenderness Cardiovascular: Rhythm Regular, No Friction Rub, No Murmur Respiratory: Normal Breath Sounds, No Rales, No Rhonchi, No Wheezing Gastrointestinal/Abdominal: Soft, No Tenderness Extremity: Normal ROM, No Swelling Extremity: Bilateral: Atraumatic, Normal ROM Neurological/Psych: Oriented x3, Normal Speech, Normal Cranial Nerves Gait: Steady ED Course And Treatment O2 Sat by Pulse Oximetry: 99 (RA) Pulse Ox Interpretation: Normal Medical Decision Making Medical Decision Making: Impression: Sinusitis Disposition - Disposition Referrals: Baldev Morales MD [Staff Provider] - Disposition: HOME/ ROUTINE Disposition Time: 12:21 Condition: GOOD Additional Instructions: Follow up with the medical doctor within 1-2 days without fail. Return if worsened. Prescriptions: Azithromycin [Zithromax] 250 mg PO DAILY #4 tab Loratadine [Claritin] 10 mg PO DAILY #10 tab predniSONE [Prednisone] 10 mg PO BID #10 tab Instructions: Sinusitis, Adult (DC) Forms: [employer] (Salvadorean) - Clinical Impression Clinical Impression: Sinusitis - PA / COMPANY PILOT / Resident Statement MD/DO has reviewed & agrees with the documentation as recorded. - Scribe Statement The provider has reviewed the documentation as recorded by the Scribe Thea Catherine All medical record entries made by the Scribe were at my direction and personally dictated by me. I have reviewed the chart and agree that the record accurately reflects my personal performance of the history, physical exam, medical decision making, and the department course for this patient. I have also personally directed, reviewed, and agree with the discharge instructions and disposition.
[2018-12-07 12:32] VITALS: BP 119/85; PULSE 71; RESP 16
[2018-12-09 06:52] VITALS: O2SAT 99
== END 2018-12-07 12:31 | disposition home or self-care (01) ==
LOC: C.ER 11:10
DX: J32.9 Chronic sinusitis, unspecified (principal)

== ENCOUNTER 2019-02-01 12:45 | Emergency (ER) | payer MEDICARE ==
[2019-02-01 12:46] VITALS: BMI 32.9
[2019-02-01 12:53] VITALS: RESP 18
--- NOTE | 2019-02-01 14:39 | C.PDOC ---
History Of Present Illness 84 y/o female, with history of arthritis, hypertension, hyperlipidemia, and diabetes, comes in to ED with right shoulder and hip pain for the past few months. Denies any trauma. Also denies fever, chills, or other complaints. Time Seen by Provider: 02/01/19 14:15 Chief Complaint (Nursing): Upper Extremity Problem/Injury History Per: Patient History/Exam Limitations: no limitations Onset/Duration Of Symptoms: Days Current Symptoms Are (Timing): Still Present Past Medical History Reviewed: Historical Data, Nursing Documentation, Vital Signs Vital Signs: Last Vital Signs Temp 97.6 F 02/01/19 12:48 Pulse 88 02/01/19 12:48 Resp 18 02/01/19 12:48 BP 126/75 02/01/19 12:48 Pulse Ox 97 02/01/19 12:48 Primary Care Provider: Diomedes Diaz - Medical History PMH: Anemia, Arthritis, Asthma, Back Problems, COPD, Diabetes (NIDDM), HTN, Hypercholesterolemia, Osteoporosis, TIA Denies: Colonic Polyps, Fractures, Chronic Kidney Disease, Seizures, Sleep Apnea Surgical History: Denies: Endoscopy - [facility] Procedures CLOSED ENDOSCOPIC BIOPSY OF LARGE INTESTINE (12/14/13) ESOPHAGOGASTRODUODENOSCOPY [EGD] W/CLOSED BIOPSY (12/14/13) Family History: States: No Known Family Hx - Social History Hx Tobacco Use: No Hx Alcohol Use: No Hx Substance Use: No - Immunization History Hx Tetanus Toxoid Vaccination: No Hx Influenza Vaccination: Yes Hx Pneumococcal Vaccination: No Review Of Systems Except As Marked, All Systems Reviewed And Found Negative. Constitutional: Negative for: Fever, Chills Respiratory: Negative for: Shortness of Breath Gastrointestinal: Negative for: Nausea, Vomiting Musculoskeletal: Positive for: Shoulder Pain (Right), Other (Right Hip Pain). Negative for: Neck Pain Neurological: Negative for: Weakness, Numbness Physical Exam - Physical Exam Appears: Non-toxic, No Acute Distress Skin: Warm, Dry Head: Normacephalic Eye(s): bilateral: PERRL Oral Mucosa: Moist Neck: Supple Extremity: Bilateral: Atraumatic, Normal Color And Temperature Neurological/Psych: Oriented x3, Normal Speech, Normal Motor, Normal Sensation Gait: Steady ED Course And Treatment - Laboratory Results Result Diagrams: 02/01/19 14:54 02/01/19 14:54 ECG: Interpreted By Me, Viewed By Me ECG Rhythm: Sinus Rhythm Interpretation Of ECG: No ST/T wave changes. Rate From EC O2 Sat by Pulse Oximetry: 97 (RA) Pulse Ox Interpretation: Normal Medical Decision Making Medical Decision Making: Plan: --Labs --Venous Duplex Scan of lower extremities --Toradol 30 mg IVP Disposition - Disposition Disposition: HOME/ ROUTINE Disposition Time: 15:00 Condition: STABLE Additional Instructions: followup with your doctor/clinic. return to any er with worsening. Instructions: Dependent Edema (DC), Arthritis and Exercise Forms: [employer] (Portuguese) - Clinical Impression Clinical Impression: Arthritis, Leg pain - Scribe Statement The provider has reviewed the documentation as recorded by the Rashad Green Provider Attestation: All medical record entries made by the Juan Davidibflorencio were at my direction and personally dictated by me. I have reviewed the chart and agree that the record accurately reflects my personal performance of the history, physical exam, medical decision making, and the department course for this patient. I have also personally directed, reviewed, and agree with the discharge instructions and disposition.
[2019-02-01 15:03] LABS: BASO % 0.8 % (0.0-2.0); EOS # 0.2 K/uL (0.0-0.7); HEMOGLOBIN 10.7 g/dL (11.0-16.0); LYMPH # 1.4 K/uL (1.0-4.3); LYMPH % 22.2 % (20.0-40.0); MEAN CELL VOLUME 78.6 fL (81.0-99.0); MEAN CORPUSCULAR HEMOGLOBIN 25.2 pg (27.0-31.0); MEAN CORPUSCULAR HGB CONC 32.1 g/dL (33.0-37.0); MEAN PLATELET VOLUME 8.7 fL (7.2-11.7); MONO # 0.5 K/uL (0.0-0.8); MONO % 8.5 % (0.0-10.0); NEUT % 65.5 % (50.0-75.0); RBC 4.23 Mil/uL (3.80-5.20); RED CELL DISTRIBUTION WIDTH 14.5 % (11.5-14.5); WHITE BLOOD COUNT 6.2 K/uL (4.8-10.8)
[2019-02-01 15:08] LABS: PROTHROMBIN TIME 11.1 SECONDS (9.7-12.2)
[2019-02-01 15:20] LABS: ALB/GLOB RATIO 1.4 (1.0-2.1); ALBUMIN 4.4 g/dL (3.5-5.0); ALT/SGPT 9 U/L (9-52); AST/SGOT 28 U/L (14-36); BLOOD UREA NITROGEN 23 mg/dL (7-17); CALCIUM 10.1 mg/dl (8.6-10.4); GFR NON-AFRICAN AMERICAN > 60
[2019-02-01 15:39] VITALS: BP 117/52; PULSE 71; TEMP 97.5
[2019-02-01 20:26] VITALS: O2SAT 97
--- NOTE | 2019-02-02 13:37 | VASCLAB ---
Date of service: 02/01/2019 PROCEDURE: Right Lower Extremity Venous Duplex Exam. HISTORY: leg swelling PRIORS: Normal exam on 08/31/2018. TECHNIQUE: Right common femoral, femoral, popliteal and posterior tibial, peroneal and great saphenous veins were evaluated. Flow was assessed with color Doppler, compressibility, assessment of phasic flow and augmentation response. Report prepared by LIONEL Earl FINDINGS: RIGHT: 1. Common Femoral Vein: 1.1. Compressibility - Fully compressible: Thrombus - None: Flow - Phasic: Augmentation -Normal: Reflux - None. 2. Femoral Vein: 2.1. Compressibility - Fully compressible: Thrombus - None: Flow - Phasic: Augmentation -Normal: Reflux - None. 3. Popliteal Vein: 3.1. Compressibility - Fully compressible: Thrombus - None: Flow - Phasic: Augmentation -Normal: Reflux - None. 4. Posterior Tibial Vein: 4.1. Unable to visualize/ diminutive caliber vessels distally. 5. Peroneal Vein: 5.1. Compressibility - Fully compressible: Thrombus - None: Flow - Phasic: Augmentation -Normal: Reflux - None. 6. Great Saphenous Vein: 6.1. Compressibility - Fully compressible: Thrombus -None: Flow - Phasic: Augmentation - Normal: Reflux - None. OTHER FINDINGS: Normal venous flow noted in the LEFT common femoral vein. IMPRESSION: No evidence of deep or superficial vein thrombosis of the right lower extremity with excellent venous flow, as visualized. Normal valve function noted of the right side.
--- NOTE | 2019-02-04 03:30 | CARD ---
APPROVED REPORT Date of service: 02/01/2019 EKG Measurement Heart [id number] ID [id number] <Conclusion> Sinus rhythm with premature supraventricular complexes Nonspecific ST abnormality Abnormal ECG
== END 2019-02-01 15:39 | disposition home or self-care (01) ==
LOC: C.ER 12:45
DX: M79.606 Pain in leg, unspecified (principal); M19.90 Unspecified osteoarthritis, unspecified site; I10 Essential (primary) hypertension; E11.9 Type 2 diabetes mellitus without complications; E78.00 Pure hypercholesterolemia, unspecified; Z86.73 Personal history of transient ischemic attack (TIA), and cerebral infarction without residual deficits
CPT/HCPCS: 80053; 85025; 85610; 85730; 93971; 96374; 99284; J1885